=== PATIENT | female | born 1970 | race African-American/Black ===

== ENCOUNTER 2017-02-13 13:38 | Emergency (ER) | payer MEDICAID ==
[~2017-02-13] VITALS: Ht 170.2 cm; Wt 91.0 kg
[~2017-02-13 13:38] MED LIST: QUET50TA11 PO
[2017-02-13 15:10] LABS: CLARITY URINE CLEAR (CLEAR); COLOR URINE YELLOW (YELLOW); GLUCOSE URINE NEGATIVE (NEGATIVE); KETONES URINE NEGATIVE (NEGATIVE); LEUKOCYTE ESTERASE URINE NEGATIVE (NEGATIVE); NITRITE URINE NEGATIVE (NEGATIVE); OCCULT BLOOD URINE TRACE (NEGATIVE); PROTEIN URINE NEGATIVE (NEGATIVE); SPECIFIC GRAVITY URINE 1.023 (1.005-1.030); UROBILINOGEN URINE 0.2 E.U./dL (0.2-1.0)
[2017-02-13 15:12] LABS: BACTERIA URINE NONE SEEN; CALCIUM PHOSPHATE CRYSTALS UR NONE SEEN /lpf; RBC URINE 0-2 /hpf (0-2); SQUAMOUS EPITHELIAL CELL URINE 1+ /lpf (RARE/1+); WAXY CASTS URINE NONE SEEN /lpf; WBC URINE 0-2 /hpf (0-2); YEAST URINE NONE SEEN
[2017-02-13] MEDS ORDERED: AZITHROMYCIN 500 MG TABLET PO SCH (15:30)
[2017-02-13] MEDS ORDERED: LIDOCAINE HCL 1% 20ML VIAL (Pyxis) INJ INFIL ONE (15:30)
[2017-02-13] MEDS ORDERED: CEFTRIAXONE SODIUM 250 MG/VIAL IM ONE (15:30)
[2017-02-13 16:48] VITALS: BP 117/66
== END 2017-02-13 16:50 | disposition home or self-care (01) ==
LOC: ER 14:43
DX: N76.0 Acute vaginitis (principal); F17.200 Nicotine dependence, unspecified, uncomplicated; F31.9 Bipolar disorder, unspecified; Z88.0 Allergy status to penicillin
CPT/HCPCS: 81001; 81025; 87186; 87210; 87491; 87591; 96372; 99284; 99406; J0696; J3490; Z7610